=== PATIENT | female | born 1995 | race Caucasian/White ===

== ENCOUNTER → 2017-05-16 | Outpatient (CLI) | payer SELFPAY | LOC: LAB.R 08:00 | PROVIDERS: ATTEND Podiatrist | DX: L03.031 Cellulitis of right toe (principal) | CPT/HCPCS: 87070; 87205 ==

== ENCOUNTER 2017-08-14 11:47 | Emergency (ER) | payer OTHER ==
[2017-08-14 12:15] LABS: HCG UR QUAL NEGATIVE
[2017-08-14 12:16] LABS: PH,URINE 6.5 PH (5.0-7.5); UA w/ MICROSCOPIC CHARGE YES
[2017-08-14 12:17] LABS: BILIRUBIN,URINE NEGATIVE (NEGATIVE)
[2017-08-14 12:37] LABS: UR CULTURE IF IND NOT INDICATED
[2017-08-14] MEDS ORDERED: SODIUM CHLORIDE FLUSH 0.9% 10 ML SYRINGE IVP ONE (12:57)
--- NOTE | 2017-08-14 12:57 | ED Physician Documentation ---
PD HPI SYNCOPE - Stated complaint Stated Complaint: SYNCOPAL EPISODE - Chief complaint Chief Complaint: Neuro - History obtained from History obtained from: Patient - History of Present Illness Witnessed: Witnessed Timing - onset: Today Duration: Seconds Preceding symptoms: Light headed (had felt some lightheaded today. SItting at desk at work, she felt lightheaded and coworker noted her to be pale and have blank stare. She then slumped onto desk. Lowered to ground. No injury. Awoke without complaints of pain.), Generalized weakness. No: Headache, Chest pain, Abdominal pain, Nausea / vomiting Associated symptoms: No: Seizure Contributing factors: Decreased PO intake (had had small snack for breakfast, overall has had less calorie intake due to dieting, but only lost about 15 lbs over 2-3 months, so slow loss. No recent fasting nor cleanse. Has been drinking fluids. No change in meds.). No: Recent med change Injury occurred: No: Fell Similar symptoms before: Has not had sx before Recently seen: Not recently seen Review of Systems Constitutional: denies: Fever, Chills Nose: denies: Rhinorrhea / runny nose, Congestion Throat: denies: Sore throat Cardiac: denies: Chest pain / pressure, Palpitations Respiratory: denies: Dyspnea, Cough GI: denies: Abdominal Pain, Nausea, Vomiting, Diarrhea, Bloody / black stool : denies: Dysuria, Frequency, Discharge, Missed period Skin: denies: Rash Neurologic: reports: Generalized weakness. denies: Focal weakness, Numbness, Altered mental status, Headache, Head injury Endocrine: reports: Weight loss (mild). denies: Easy bruising / bleeding Immunocompromised: denies: Immunocompromised PD PAST MEDICAL HISTORY - Past Medical History Cardiovascular: None Respiratory: None Neuro: None Endocrine/Autoimmune: None - Allergies Allergies/Adverse Reactions: Allergies Allergy/AdvReac Type Severity Reaction Status Date / Time No Known Drug Allergies Allergy Verified 08/14/17 12:00 PD ED PE NORMAL - Vitals Vital signs reviewed: Yes - General General: Alert and oriented X 3, No acute distress, Well developed/nourished - HEENT HEENT: Atraumatic, Moist mucous membranes, Pharynx benign - Neck Neck: Supple, no meningeal sign, No adenopathy - Cardiac Cardiac: RRR, No murmur - Respiratory Respiratory: Clear bilaterally - Abdomen Abdomen: Normal bowel sounds, Soft, Non tender, Non distended, No organomegaly - Female Female : Deferred - Rectal Rectal: Deferred - Back Back: No CVA TTP - Derm Derm: Normal color, Warm and dry - Neuro Neuro: Alert and oriented X 3, 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 No: ST elevation c/w ischemia, ST depression, T wave inversion - Labs Labs: Laboratory Tests 08/14/17 08/14/17 08/14/17 12:00 12:00 12:09 WBC RBC Hgb Hct MCV MCH MCHC RDW Plt Count MPV Neut # Lymph # [place] # Eos # Baso # Absolute Nucleated RBC Nucleated RBC % Sodium Potassium Chloride Carbon Dioxide Anion Gap BUN Creatinine Estimated GFR (MDRD) Glucose POC Whole Bld Glucose 79 Calcium Total Bilirubin AST ALT Alkaline Phosphatase Total Protein Albumin Globulin Albumin/Globulin Ratio Lipase TSH Urine Color LIGHT YELLOW Urine Clarity HAZY Urine pH 6.5 Ur Specific [place] <=1.005 <=1.005 Urine Protein NEGATIVE Urine Glucose (UA) NEGATIVE Urine Ketones NEGATIVE Urine Occult Blood NEGATIVE Urine Nitrite NEGATIVE Urine Bilirubin NEGATIVE Urine Urobilinogen 0.2 (NORMAL) Ur Leukocyte Esterase TRACE H Urine RBC 0-5 Urine WBC 4-5 Ur Squamous Epith Cells MOD Squamous H Urine Bacteria Few Ur Microscopic Review INDICATED Urine Culture Comments NOT INDICATED Urine HCG, Qual NEGATIVE 08/14/17 08/14/17 08/14/17 12:12 13:02 13:02 WBC 8.6 RBC 4.90 Hgb 14.2 Hct 42.1 MCV 85.9 MCH 28.9 MCHC 33.7 RDW 12.6 Plt Count 208 MPV 8.7 Neut # 5.9 Lymph # 1.8 [place] # 0.8 Eos # 0.1 Baso # 0.0 Absolute Nucleated RBC 0.01 Nucleated RBC % 0.1 Sodium 138 Potassium 4.2 Chloride 103 Carbon Dioxide 24 Anion Gap 11.0 BUN 11 Creatinine 0.8 Estimated GFR (MDRD) 90 Glucose 81 POC Whole Bld Glucose 77 Calcium 9.7 Total Bilirubin 1.0 AST 22 ALT 15 Alkaline Phosphatase 73 Total Protein 7.7 Albumin 4.8 Globulin 2.9 Albumin/Globulin Ratio 1.7 Lipase 30 TSH Urine Color Urine Clarity Urine pH Ur Specific [place] Urine Protein Urine Glucose (UA) Urine Ketones Urine Occult Blood Urine Nitrite Urine Bilirubin Urine Urobilinogen Ur Leukocyte Esterase Urine RBC Urine WBC Ur Squamous Epith Cells Urine Bacteria Ur Microscopic Review Urine Culture Comments Urine HCG, Qual 08/14/17 13:02 WBC RBC Hgb Hct MCV MCH MCHC RDW Plt Count MPV Neut # Lymph # [place] # Eos # Baso # Absolute Nucleated RBC Nucleated RBC % Sodium Potassium Chloride Carbon Dioxide Anion Gap BUN Creatinine Estimated GFR (MDRD) Glucose POC Whole Bld Glucose Calcium Total Bilirubin AST ALT Alkaline Phosphatase Total Protein Albumin Globulin Albumin/Globulin Ratio Lipase TSH 1.33 Urine Color Urine Clarity Urine pH Ur Specific [place] Urine Protein Urine Glucose (UA) Urine Ketones Urine Occult Blood Urine Nitrite Urine Bilirubin Urine Urobilinogen Ur Leukocyte Esterase Urine RBC Urine WBC Ur Squamous Epith Cells Urine Bacteria Ur Microscopic Review Urine Culture Comments Urine HCG, Qual PD MEDICAL DECISION MAKING - ED course Complexity details: reviewed results (blood sugar here was 70s, which is okay. She had had juice and some snacks after fainting and before getting here, so might have been lower. No history of diabetes and not majorly sick the past few days. ), considered differential, d/w patient Departure - Departure Disposition: 01 Home, Self Care Clinical Impression: Episode of syncope Qualifiers: Syncope type: unspecified Qualified Code(s): R55 - Syncope and collapse Condition: Stable Record reviewed to determine appropriate education?: Yes Instructions: ED Dizziness Syncope Fainting W Pre Comments: Drink lots of fluids and eat regularly. Your tests here look normal. Your blood sugar was adequate or perhaps slightly low and that was after having had some juice and food. This may represent a lower blood sugar at the time of your symptoms but not necessarily confirmatory. See how you do over the next few days. Eat regularly. Recheck your blood sugar if you have the ability in the mornings over the next several days or if you have lightheaded symptoms again. Follow-up with your primary care if you have repeated episodes of lightheadedness or fainting or if you find that your blood sugar is low at times (below 70 or so). Otherwise you potentially could have had just a transient drop in the blood pressure as well. Discharge Date/Time: 08/14/17 14:16
[2017-08-14 13:13] LABS: BASOPHILS % (AUTO) 0.4 %; EOSINOPHILS # (AUTO) 0.1 10^3/uL (0.0-0.7); EOSINOPHILS % (AUTO) 0.7 %; HCT - HEMATOCRIT 42.1 % (37.0-47.0); HGB - HEMOGLOBIN 14.2 g/dL (12.0-16.0); LYMPHOCYTES # (AUTO) 1.8 10^3/uL (1.5-3.5); LYMPHOCYTES % (AUTO) 20.8 %; MEAN CORPUSCULAR HEMOGLOBIN 28.9 pg (27.0-31.0); MEAN CORPUSCULAR HGB CONC 33.7 g/dL (32.0-36.0); MEAN CORPUSCULAR VOLUME 85.9 fL (81.0-99.0); MEAN PLATELET VOLUME 8.7 fL (7.9-10.8); MONOCYTES # (AUTO) 0.8 10^3/uL (0.0-1.0); MONOCYTES % (AUTO) 9.3 %; NEUTROPHILS # (AUTO) 5.9 10^3/uL (1.5-6.6); NEUTROPHILS % (AUTO) 68.8 %; NUCLEATED RED BLOOD CELLS AUTO 0.1 /100WBC; RED CELL DISTRIBUTION WIDTH 12.6 % (12.0-15.0); UNCORRECTED WHITE BLOOD COUNT 8.6 x10^3/uL; WHITE BLOOD COUNT 8.6 x10^3/uL (4.8-10.8)
[2017-08-14 13:34] LABS: ALBUMIN/GLOBULIN RATIO 1.7 (1.0-2.2); CALCIUM 9.7 mg/dL (8.5-10.3); CREATININE 0.8 mg/dL (0.4-1.0); POTASSIUM 4.2 mmol/L (3.5-5.0); TOTAL PROTEIN 7.7 g/dL (6.7-8.2)
[2017-08-14 13:47] VITALS: BP 104/64
== END 2017-08-14 14:16 | disposition home or self-care (01) ==
LOC: ED 11:47
DX: R55 Syncope and collapse (principal)
CPT/HCPCS: 36415; 80053; 81001; 81003; 81025; 83690; 84443; 85025; 87086; 93005; 99284